=== PATIENT | female | born 1970 ===

== ENCOUNTER 2017-12-20 23:03 | Emergency (ER) | payer OTHER ==
[~2017-12-20] VITALS: Ht 162.6 cm; Wt 56.7 kg
[~2017-12-20 23:03] MED LIST: IMODIUM A-D2 MG PO; PEPCID40 MG PO; ZANTAC300 MG PO; ZOFRAN4 MG PO
[2017-12-21] MEDS ORDERED: CHLORDIAZEPOXI1 EACH PO (07:35)
== END 2017-12-21 07:50 | disposition home or self-care (01) ==
LOC: ER 23:03
DX: K52.89 Other specified noninfective gastroenteritis and colitis (principal)

== ENCOUNTER 2019-04-06 10:02 | Emergency (ER) | payer OTHER ==
[~2019-04-06] VITALS: Ht 162.6 cm; Wt 59.0 kg
[~2019-04-06 10:02] MED LIST changes: +CHLORDIAZEPOXI1 EACH PO
== END 2019-04-06 15:19 | disposition home or self-care (01) ==
LOC: ER 10:02
DX: N39.0 Urinary tract infection, site not specified (principal)

== ENCOUNTER 2019-08-31 18:43 | Emergency (ER) | payer OTHER ==
[~2019-08-31] VITALS: Ht 162.6 cm; Wt 61.2 kg
== END 2019-08-31 21:28 | disposition home or self-care (01) ==
LOC: ER 18:43
DX: N83.292 Other ovarian cyst, left side (principal); N83.291 Other ovarian cyst, right side

== ENCOUNTER → 2021-06-13 | Outpatient (CLI) | payer OTHER | END | disposition home or self-care (01) | LOC: MAMO-SONO 09:15 | PROVIDERS: ATTEND Obstetrics & Gynecology | DX: R92.1 Mammographic calcification found on diagnostic imaging of breast (principal); Z12.31 Encounter for screening mammogram for malignant neoplasm of breast ==

== ENCOUNTER 2023-06-17 11:00 | Outpatient (CLI) | payer OTHER | END 2023-06-17 11:03 | disposition home or self-care (01) | LOC: MAMO-SONO 11:00 | PROVIDERS: ATTEND Obstetrics & Gynecology Gynecology | DX: Z12.31 Encounter for screening mammogram for malignant neoplasm of breast (principal); N60.19 Diffuse cystic mastopathy of unspecified breast; N64.4 Mastodynia; R92.2 Inconclusive mammogram; N63.0 Unspecified lump in unspecified breast; R33.9 Retention of urine, unspecified; N13.0 Hydronephrosis with ureteropelvic junction obstruction; R10.2 Pelvic and perineal pain ==

== ENCOUNTER 2024-06-18 11:35 | Outpatient (CLI) | payer OTHER | END 2024-06-18 11:45 | disposition home or self-care (01) | LOC: MAMO-SONO 11:35 | PROVIDERS: ATTEND Obstetrics & Gynecology Gynecology | DX: N63.0 Unspecified lump in unspecified breast (principal); N60.19 Diffuse cystic mastopathy of unspecified breast; N64.4 Mastodynia; R92.2 Inconclusive mammogram; Z12.31 Encounter for screening mammogram for malignant neoplasm of breast ==

== ENCOUNTER 2025-08-04 10:33 | Outpatient (CLI) | payer OTHER | END 2025-08-04 10:34 | disposition home or self-care (01) | LOC: NUCLEAR 10:33 | PROVIDERS: ATTEND Obstetrics & Gynecology Gynecology | DX: M81.0 Age-related osteoporosis without current pathological fracture (principal); M85.80 Other specified disorders of bone density and structure, unspecified site ==

== ENCOUNTER → 2025-08-04 | Outpatient (CLI) | payer OTHER | END | disposition home or self-care (01) | LOC: RAD 09:02 | PROVIDERS: ATTEND Obstetrics & Gynecology Gynecology | DX: N60.19 Diffuse cystic mastopathy of unspecified breast (principal); N64.4 Mastodynia; R92.2 Inconclusive mammogram; N63.0 Unspecified lump in unspecified breast; Z12.31 Encounter for screening mammogram for malignant neoplasm of breast; R10.20 Pelvic and perineal pain unspecified side; N30.20 Other chronic cystitis without hematuria ==